=== PATIENT | female | born 1985 ===

== ENCOUNTER 2020-06-30 21:20 | Inpatient (IN) ==
[2020-06-30 22:05] LABS: ABS Eosinophils 0.1 10^3/ul (0-0.6); ABS Lymphocytes 2.1 10^3/ul (1.0-4.8); ABS Monocytes 0.6 10^3/ul (0-0.8); ABS Neutrophils 3.9 10^3/ul (1.5-7.7); Eosinophil % 0.9 %; Hematocrit 38 % (35-47); Hemoglobin 12.4 g/dL (12.0-16.0); Lymphocyte % 31.4 %; Mean Corpuscular HGB Conc 33 g/dL (31-36); Mean Corpuscular Hemoglobin 29 pg (27-31); Mean Corpuscular Volume 89 fL (80-97); Mean Platelet Volume 7.4 fL (7.4-10.4); Platelet Count 282 10^3/uL (150-450); Red Blood Count 4.25 10^6 /uL (3.70-4.87); Red Cell Distribution Width 13 % (10-15); White Blood Count 6.7 10^3/uL (3.5-10.8)
[2020-06-30 22:23] LABS: ALT 10 U/L (7-52); AST 15 U/L (13-39); Albumin 4.1 g/dL (3.2-5.2); Albumin/Globulin Ratio 1.2 (1-3); Alkaline Phosphatase 39 U/L (34-104); Anion Gap 6 mmol/L (2-11); Blood Urea Nitrogen 13 mg/dL (6-24); CO2 Carbon Dioxide 25 mmol/L (22-32); Calcium 8.9 mg/dL (8.6-10.3); Chloride 105 mmol/L (101-111); EGFR African American 99.4 (>60); EGFR Non-African American 82.1 (>60); Globulin 3.5 g/dL (2-4); Glucose 79 mg/dL (70-100); Potassium 4.3 mmol/L (3.5-5.0); Sodium 136 mmol/L (135-145); Total Protein 7.6 g/dL (6.4-8.9)
[2020-06-30 22:29] LABS: HCG Pregnancy < 0.60 mIU/mL
[2020-06-30 22:34] LABS: Alcohol, S < 10 mg/dL (<10); Salicylate < 2.50 mg/dL (<30)
[2020-06-30 22:36] LABS: Acetaminophen < 15 mcg/mL
[2020-06-30 22:49] LABS: TSH Ultra Thyroid Stim Horm 1.18 mcIU/mL (0.34-5.60)
[2020-06-30 23:53] LABS: Urine Appearance Cloudy; Urine Bilirubin Negative (Negative); Urine Blood Negative (Negative); Urine Color Yellow; Urine Glucose Negative (Negative); Urine Ketones Negative (Negative); Urine Nitrite Negative (Negative); Urine Protein Negative (Negative); Urine Specific Gravity 1.017 (1.002-1.030); Urine Urobilinogen Negative (Negative)
[2020-07-01 00:06] LABS: Urine Bacteria 3+ (Absent); Urine Red Blood Cell 1+(3-5/hpf) (Absent); Urine Squamous Epithelial Cell Present (Absent); Urine White Blood Cell 2+(11-20/hpf) (Absent)
[2020-07-01 00:14] LABS: Urine Benzodiazepine Screen None Detected (None Detect); Urine Cannabinoids Screen None Detected (None Detect); Urine Opiates Screen None Detected (None Detect)
[2020-07-01] MEDS ORDERED: Al Hydrox/Mg Hydrox/Simet LIQ 30 ML UDC PO PRN (04:09)
[2020-07-01] MEDS: Vitamin THERAPEUTIC TAB PO SCH (12:41)
[2020-07-02] MEDS: Vitamin THERAPEUTIC TAB PO SCH (07:28)
[2020-07-02] MEDS: Amphetamine MIXED SALT 10mgTAB PO SCH ×2 (07:28→14:33)
[2020-07-03] MEDS: Vitamin THERAPEUTIC TAB PO SCH (08:06)
[2020-07-04 08:18] LABS: HDL Cholesterol 52.4 mg/dL
[2020-07-04] MEDS: Vitamin THERAPEUTIC TAB PO SCH (12:17)
[2020-07-05] MEDS: Vitamin THERAPEUTIC TAB PO SCH (12:40)
[2020-07-06] MEDS: Vitamin THERAPEUTIC TAB PO SCH (09:47)
[2020-07-06 20:56] VITALS: BP 0/0
[2020-07-07] MEDS: Vitamin THERAPEUTIC TAB PO SCH (09:10)
[2020-07-08] MEDS: Vitamin THERAPEUTIC TAB PO SCH (08:42)
[2020-07-09] MEDS: Vitamin THERAPEUTIC TAB PO SCH (07:23)
[2020-07-09] MEDS: Lactase Enzyme (NF) 3,000 UNIT TAB PO SCH (18:09)
[2020-07-10] MEDS: Lactase Enzyme (NF) 3,000 UNIT TAB PO SCH ×3 (09:32→17:34)
[2020-07-10] MEDS: Vitamin THERAPEUTIC TAB PO SCH (09:32)
[2020-07-11] MEDS: Lactase Enzyme (NF) 3,000 UNIT TAB PO SCH ×3 (07:54→19:37)
[2020-07-11] MEDS: Vitamin THERAPEUTIC TAB PO SCH (09:48)
[2020-07-12] MEDS: Vitamin THERAPEUTIC TAB PO SCH (09:56)
[2020-07-12] MEDS: Lactase Enzyme (NF) 3,000 UNIT TAB PO SCH ×2 (09:56→11:53)
== END 2020-07-12 13:00 | disposition home or self-care (01) | DRG 753 ==
LOC: ED 21:20 → BSU 07-01 03:35
PROVIDERS: ADMIT Psychiatry & Neurology Psychiatry; ATTEND Psychiatry & Neurology Psychiatry